=== PATIENT | female | born 1960 | race African-American/Black ===

== ENCOUNTER 2020-02-01 08:53 | Emergency (ER) | payer MEDICAID ==
[~2020-02-01] VITALS: Ht 167.6 cm; Wt 99.0 kg
[~2020-02-01 08:53] MED LIST: NO MEDS
[2020-02-01] MEDS ORDERED: ATOR20TA86 PO (09:15)
[2020-02-01] MEDS ORDERED: AMLO5TAB9 PO (09:15)
[2020-02-01] MEDS ORDERED: LISI-661 PO (09:15)
[2020-02-01] MEDS ORDERED: SITA50 PO (09:15)
[2020-02-01] MEDS ORDERED: FLUORESCEIN SODIUM 1 MG STRIP ONE (10:17)
[2020-02-01] MEDS ORDERED: TETRACAINE HCL/PF 0.5% 4 ML OPHTHALMIC SOLUTION OU ONE (10:30)
[2020-02-01 12:21] VITALS: BP 152/94
== END 2020-02-01 12:31 | disposition home or self-care (01) ==
LOC: EMS 08:56
DX: Z77.098 Contact with and (suspected) exposure to other hazardous, chiefly nonmedicinal, chemicals (principal); E11.9 Type 2 diabetes mellitus without complications; I10 Essential (primary) hypertension; F17.210 Nicotine dependence, cigarettes, uncomplicated; Z79.899 Other long term (current) drug therapy; Z88.0 Allergy status to penicillin
CPT/HCPCS: 99406

== ENCOUNTER 2020-06-09 07:59 | Emergency (ER) | payer MEDICAID, OTHER ==
[~2020-06-09] VITALS: Ht 162.6 cm; Wt 90.9 kg
[~2020-06-09 07:59] MED LIST changes: +AMLO-257 PO; +ATOR20TA86 PO; +LISI-661 PO; +SITA50 PO
[2020-06-09 08:04] VITALS: BP 145/90
[2020-06-09] MEDS ORDERED: AZITHROMYCIN 500 MG TABLET PO ONE (09:45)
[2020-06-09] MEDS ORDERED: ALBUTEROL SULFATE HFA 90 MCG/PUFF 8 GM INHALER IH ONE (09:45)
== END 2020-06-09 10:11 | disposition home or self-care (01) ==
LOC: EMS 08:02
DX: U07.1 COVID-19 (principal); J12.89 Other viral pneumonia; M79.10 Myalgia, unspecified site; E11.9 Type 2 diabetes mellitus without complications; E78.00 Pure hypercholesterolemia, unspecified; I10 Essential (primary) hypertension; F17.210 Nicotine dependence, cigarettes, uncomplicated; Z88.0 Allergy status to penicillin; Z79.899 Other long term (current) drug therapy
CPT/HCPCS: 71045; 99284; U0003; 94640; J3535

== ENCOUNTER 2021-03-10 23:22 | Emergency (ER) | payer OTHER ==
[~2021-03-10] VITALS: Ht 162.6 cm; Wt 90.9 kg
[~2021-03-10 23:22] MED LIST changes: -LISI-661 PO; +LISI-893 PO
[2021-03-11 00:02] LABS: BASOPHILS % (AUTO) 1.2 % (0.0-2.0); EOSINOPHILS % (AUTO) 6.7 % (1.0-6.0); HEMATOCRIT 44.1 % (36-46); HEMOGLOBIN 14.9 g/dL (12.0-16.0); LYMPHOCYTES # (AUTO) 5.2 K/uL (1.0-4.8); LYMPHOCYTES % (AUTO) 41.5 % (22.0-44.0); MEAN CORPUSCULAR HEMOGLOBIN 31.4 pg (26.0-34.0); MEAN CORPUSCULAR HGB CONC 33.7 G/dL (31.0-37.0); MEAN CORPUSCULAR VOLUME 93 fL (80-100); MONOCYTES # (AUTO) 0.6 K/uL (0.1-1.0); MONOCYTES % (AUTO) 4.7 % (2.0-9.0); NEUTROPHILS # (AUTO) 5.7 K/uL (1.8-7.7); NEUTROPHILS % (AUTO) 45.9 % (40.0-70.0); PLATELET COUNT (AUTO) 324 K/uL (150-450); RED BLOOD CELL COUNT(AUTO) 4.73 MIL/uL (4.00-5.20); RED CELL DISTRIBUTION WIDTH 12.5 % (11.5-14.5)
[2021-03-11 00:12] LABS: ANION GAP 9 mmol/L (8-16); CALCIUM, TOTAL 8.9 mg/dL (8.8-10.5); CARBON DIOXIDE 28 mmol/L (22-29); CHLORIDE 104 mmol/L (98-107); CREATININE 0.84 mg/dL (0.60-1.30); GLOMERULAR FILTR. RATE CALC > 60 mL/min (>60); GLUCOSE,RANDOM 100 mg/dL (70-110); POTASSIUM 3.9 mmol/L (3.5-5.1); SODIUM SERUM 141 mmol/L (136-145); UREA NITROGEN, BLOOD 15 mg/dL (7-18)
[2021-03-11 00:26] LABS: ALANINE AMINOTRANSFERASE 30 U/L (12-78); ALBUMIN 4.1 g/dL (3.4-5.0); ALKALINE PHOSPHATASE 87 U/L (46-116); ASPARTATE AMINOTRANSFERASE 10 U/L (15-37); BILIRUBIN,TOTAL 0.7 mg/dL (0.1-1.0); TOTAL PROTEIN, SERUM 7.1 g/dL (6.4-8.2)
[2021-03-11] MEDS ORDERED: ONDANSETRON HCL 4 MG/2 ML VIAL IVP ONE (01:45)
[2021-03-11] MEDS ORDERED: MORPHINE SULFATE 2 MG/ML SYRINGE IVP ONE (01:45)
[2021-03-11] MEDS ORDERED: ASPIRIN 325 MG TABLET PO ONE (01:45)
[2021-03-11 02:40] VITALS: BP 126/90
[2021-03-11] MEDS ORDERED: PANTOPRAZOLE SODIUM 40 MG DR TABLET PO ONE (03:00)
[2021-03-11] MEDS ORDERED: MAG HYDROX/AL HYDROX/SIMETH ES 30 ML SUSPENSION UDCUP PO ONE (03:00)
[2021-03-11] MEDS ORDERED: ONDANSETRON HCL 4 MG TABLET PO ONE (03:00)
== END 2021-03-11 03:56 | disposition left against medical advice (07) ==
LOC: EMS 23:27
DX: R07.89 Other chest pain (principal); E11.9 Type 2 diabetes mellitus without complications; E78.00 Pure hypercholesterolemia, unspecified; I10 Essential (primary) hypertension; F17.210 Nicotine dependence, cigarettes, uncomplicated; Z88.0 Allergy status to penicillin; Z79.899 Other long term (current) drug therapy
CPT/HCPCS: 36415; 71045; 80053; 84484; 85025; 93005; 96374; 96375; 99285; J2270; J2405; Q0162

== ENCOUNTER 2024-08-23 08:13 | Emergency (ER) | payer OTHER ==
[~2024-08-23] VITALS: Ht 167.6 cm; Wt 112.0 kg
[~2024-08-23 08:13] MED LIST changes: +ATOR20TA PO; -ATOR20TA86 PO
[2024-08-23] MEDS ORDERED: ASPI-1444 PO (08:20)
[2024-08-23] MEDS ORDERED: LISI40TA9 PO (08:20)
[2024-08-23] MEDS ORDERED: SITA100 PO (08:20)
[2024-08-23 08:55] LABS: EOSINOPHILS % (AUTO) 2.5 % (1.0-6.0); HEMATOCRIT 43.8 % (36-46); HEMOGLOBIN 14.8 g/dL (12.0-16.0); LYMPHOCYTES # (AUTO) 3.2 K/uL (1.0-4.8); LYMPHOCYTES % (AUTO) 31.9 % (22.0-44.0); MEAN CORPUSCULAR HEMOGLOBIN 31.1 pg (26.0-34.0); MEAN CORPUSCULAR HGB CONC 33.8 G/dL (31.0-37.0); MEAN CORPUSCULAR VOLUME 92 fL (80-100); MONOCYTES # (AUTO) 0.5 K/uL (0.1-1.0); MONOCYTES % (AUTO) 4.8 % (2.0-9.0); NEUTROPHILS % (AUTO) 59.8 % (40.0-70.0); PLATELET COUNT (AUTO) 302 K/uL (150-450); RED BLOOD CELL COUNT(AUTO) 4.77 MIL/uL (4.00-5.20); WHITE BLOOD COUNT (AUTO) 10.1 K/uL (4.5-11.0)
[2024-08-23] MEDS: ASPIRIN 81 MG CHEWABLE TABLET PO ONE (09:03)
[2024-08-23 09:09] LABS: ALANINE AMINOTRANSFERASE 28 U/L (12-78); ALBUMIN 3.7 g/dL (3.4-5.0); ALKALINE PHOSPHATASE 80 U/L (46-116); ANION GAP 7 mmol/L (8-16); ASPARTATE AMINOTRANSFERASE 13 U/L (15-37); BILIRUBIN,TOTAL 0.8 mg/dL (0.1-1.0); CALCIUM, TOTAL 9.3 mg/dL (8.8-10.5); CARBON DIOXIDE 23 mmol/L (22-29); CHLORIDE 107 mmol/L (98-107); CREATININE 0.81 mg/dL (0.60-1.30); GLOMERULAR FILTR. RATE CALC > 60 mL/min (>60); GLUCOSE,RANDOM 171 mg/dL (70-110); SODIUM SERUM 137 mmol/L (136-145); TOTAL PROTEIN, SERUM 7.3 g/dL (6.4-8.2); UREA NITROGEN, BLOOD 12 mg/dL (7-18)
[2024-08-23 09:10] LABS: TROPONIN I-HIGH SENSITIVITY Less Than 4 ng/L (<51)
[2024-08-23 09:19] LABS: B-TYPE NATRIURETIC PEPTIDE 19 pg/mL (0-100)
[2024-08-23 11:03] LABS: TROPONIN I-HIGH SENSITIVITY Less Than 4 ng/L (<51)
[2024-08-23 11:35] VITALS: BP 155/86; PULSE 70; RESP 18; TEMP 97.9; O2SAT 98
== END 2024-08-23 11:46 | disposition home or self-care (01) ==
LOC: EMS 08:13
DX: R07.89 Other chest pain (principal); E11.9 Type 2 diabetes mellitus without complications; E78.00 Pure hypercholesterolemia, unspecified; I10 Essential (primary) hypertension; F17.210 Nicotine dependence, cigarettes, uncomplicated; Z90.49 Acquired absence of other specified parts of digestive tract; Z88.0 Allergy status to penicillin; Z98.890 Other specified postprocedural states
CPT/HCPCS: 71045; 80053; 82962; 83880; 84484; 85025; 93005; 99285; 36415-L1; 36415-TC